=== PATIENT | male | born 1970 ===

== ENCOUNTER → 2023-08-06 11:37 | Outpatient (CLI) | payer OTHER, SELFPAY ==
--- NOTE | 2023-08-06 11:42 | DI.RAD.S_ITS ---
PROCEDURE: XR KNEE RT 3V INDICATIONS: Right knee pain x2 months TECHNIQUE: 3 views of the knee were acquired. COMPARISON: None. FINDINGS: Bones: No fractures or dislocations. No suspicious bony lesions. Mild osteoarthritis. Soft tissues: Trace joint effusion. No suspicious soft tissue calcifications. IMPRESSION: 1. No acute bony abnormality or significant effusion. 2. Osteoarthritis. 3. Trace knee joint effusion. Dictated by: Pedro Villafuerte M.D. on 08/06/2023 at 14:04 Approved by: Pedro Villafuerte M.D. on 08/06/2023 at 14:05
== END ==
PROVIDERS: Referring Provider Physician Assistant; Visit Provider Physician Assistant
DX: S86.911A Strain of unspecified muscle(s) and tendon(s) at lower leg level, right leg, initial encounter (principal); M17.11 Unilateral primary osteoarthritis, right knee; X58.XXXA Exposure to other specified factors, initial encounter
CPT/HCPCS: 73562